=== PATIENT | female | born 1975 | race Caucasian/White ===

== ENCOUNTER 2019-01-14 11:43 | Outpatient (CLI) | payer BC | END 2019-01-14 13:30 | disposition home or self-care (01) | LOC: OBT 11:43 → L-D 11:45 → OBT 13:30 | DX: O09.523 Supervision of elderly multigravida, third trimester (principal); O24.414 Gestational diabetes mellitus in pregnancy, insulin controlled; Z3A.35 35 weeks gestation of pregnancy | CPT/HCPCS: 76815; 76818 ==

== ENCOUNTER 2019-01-31 09:34 | Outpatient (CLI) | payer BC ==
[2019-01-31 10:40] LABS: ADD MAN DIFF? NO
[2019-01-31 10:41] LABS: BASOPHILS % 0.4 % (0.0-2.0); EOSINOPHILS # 0.1 10^3/ul (0.0-0.5); EOSINOPHILS % 1.7 % (0.0-7.0); HEMATOCRIT 32.8 % (37.0-47.0); HEMOGLOBIN 11.2 g/dl (12.0-16.0); LYMPHOCYTES # 1.1 10^3/ul (0.8-2.9); LYMPHOCYTES % 14.1 % (15.0-51.0); MEAN CORPUSCULAR HGB CONC 34.1 g/dl (32.0-37.0); MEAN CORPUSCULAR VOLUME 87.9 fl (82.0-101.0); MEAN PLATELET VOLUME 11.8 fl (7.4-10.4); MONOCYTE # 0.6 10^3/ul (0.3-0.9); MONOCYTES % 8.2 % (0.0-11.0); NEUTROPHIL # 5.7 10^3/ul (1.6-7.5); NEUTROPHILS % 74.8 % (39.0-77.0); PLATELET COUNT 144 10^3/UL (140-415); RED BLOOD COUNT 3.73 10^6/ul (4.20-5.40); RED CELL DISTRIBUTION WIDTH 13.2 % (11.5-14.5)
[2019-01-31 10:41] LABS: WHITE BLOOD COUNT 7.7 10^3/ul (4.8-10.8)
[2019-01-31 10:48] LABS: ADD UMIC NO; UR ASCORBIC ACID 20 mg/dL (NEGATIVE); UR BILIRUBIN (Dip) NEGATIVE (NEGATIVE); UR BLOOD (Dip) NEGATIVE (NEGATIVE); UR CLARITY CLEAR (CLEAR); UR COLOR YELLOW (YELLOW); UR GLUCOSE (Dip) 3+ mg/dL (NEGATIVE); UR KETONES (Dip) NEGATIVE (NEGATIVE); UR LEUKOCYTE ESTERASE (Dip) NEGATIVE Leu/ul (NEGATIVE); UR NITRITE (Dip) NEGATIVE (NEGATIVE); UR SPECIFIC GRAVITY (Dip) 1.025 (1.003-1.030); UR TOTAL PROTEIN (Dip) NEGATIVE (NEGATIVE); UR UROBILINOGEN (Dip) NEGATIVE (NEGATIVE)
[2019-01-31 10:59] LABS: ALANINE AMINOTRANSFERASE 33 IU/L (13-69); ALKALINE PHOSPHATASE 140 IU/L (42-121); ANION GAP 6 (5-13); ASPARTATE AMINO TRANSFERASE 24 IU/L (15-46); BILIRUBIN,INDIRECT 0.2 mg/dl (0-1.1); BILIRUBIN,TOTAL 0.2 mg/dl (0.2-1.3); BLOOD UREA NITROGEN 12 mg/dl (7-20); CALCIUM 8.9 mg/dl (8.4-10.2); CARBON DIOXIDE 21 mmol/L (21-31); CHLORIDE 107 mmol/L (97-110); CREATININE 0.43 mg/dl (0.44-1.00); Estimated GFR > 60 mL/min (>60); GLUCOSE 107 mg/dl (70-220); POTASSIUM 4.1 mmol/L (3.5-5.1); SODIUM 134 mmol/L (135-144); URIC ACID 3.6 mg/dl (3.1-7.9)
[2019-01-31 11:01] LABS: INR 0.89; PROTIME 12.2 Sec (11.9-14.9)
[2019-01-31 11:02] LABS: PARTIAL THROMBOPLASTIN TIME 27.2 Sec (23.0-35.0)
== END 2019-01-31 11:48 | disposition home or self-care (01) ==
LOC: OBT 09:34 → L-D 09:35 → OBT 11:48
DX: O13.3 Gestational [pregnancy-induced] hypertension without significant proteinuria, third trimester (principal); O09.523 Supervision of elderly multigravida, third trimester; Z3A.37 37 weeks gestation of pregnancy
CPT/HCPCS: 76818; 80053; 81003; 84560; 85025; 85384; 85610; 85730

== ENCOUNTER → 2019-02-01 | Outpatient (CLI) | payer BC ==
[2019-02-01 14:13] LABS: COLLECTION PERIOD 24 hrs
[2019-02-01 14:22] LABS: VOLUME 2800 mls
[2019-02-01 14:23] LABS: COLLECTION PERIOD 24 hrs; VOLUME 2800 ml/24hrs
[2019-02-01 14:38] LABS: CREATININE,URINE RANDOM 32.24 mg/dl (20-320)
[2019-02-01 23:11] LABS: CREATININE CLEARANCE 145.8 mls/min (84.0-162.0); SCRET 0.43 mg/dl (0.44-1.00)
[2019-02-02 13:15] LABS: CREATININE 0.49 mg/dl (0.44-1.00)
== END | disposition home or self-care (01) ==
LOC: OBT 13:56
DX: O13.3 Gestational [pregnancy-induced] hypertension without significant proteinuria, third trimester (principal); O24.419 Gestational diabetes mellitus in pregnancy, unspecified control; O34.219 Maternal care for unspecified type scar from previous cesarean delivery; O09.523 Supervision of elderly multigravida, third trimester; Z3A.37 37 weeks gestation of pregnancy; Z3A.01 Less than 8 weeks gestation of pregnancy; Z88.2 Allergy status to sulfonamides
CPT/HCPCS: 82565; 82575; 84156

== ENCOUNTER 2019-02-07 07:07 | Inpatient (IN) | payer BC ==
[2019-02-07] MEDS ORDERED: CEFAZOLIN 2 GM/50 ML (PMX) 50 ML IVPB (08:00)
[2019-02-07] MEDS ORDERED: OXYTOCIN 30 UNITS/LR 500 ML IV ×3 (08:00→09:22)
[2019-02-07] MEDS ORDERED: METHYLERGONOVINE 0.2 MG INJ IM ×2 (08:00→10:00)
[2019-02-07] MEDS ORDERED: CARBOPROST 250 MCG INJ IM ×2 (08:00→10:00)
[2019-02-07] MEDS ORDERED: MISOPROSTOL 200 MCG TAB PR ×2 (08:00→10:00)
[2019-02-07] MEDS: LACTATED RINGER'S 1,000 ML IV (08:02)
[2019-02-07 08:03] LABS: ADD MAN DIFF? NO
[2019-02-07 08:05] LABS: BASOPHILS % 0.5 % (0.0-2.0); EOSINOPHILS # 0.1 10^3/ul (0.0-0.5); EOSINOPHILS % 1.2 % (0.0-7.0); HEMATOCRIT 36.5 % (37.0-47.0); HEMOGLOBIN 12.2 g/dl (12.0-16.0); LYMPHOCYTES # 1.2 10^3/ul (0.8-2.9); LYMPHOCYTES % 14.1 % (15.0-51.0); MEAN CORPUSCULAR HEMOGLOBIN 29.5 pg (29.0-33.0); MEAN CORPUSCULAR HGB CONC 33.4 g/dl (32.0-37.0); MEAN CORPUSCULAR VOLUME 88.4 fl (82.0-101.0); MEAN PLATELET VOLUME 11.6 fl (7.4-10.4); MONOCYTE # 0.7 10^3/ul (0.3-0.9); MONOCYTES % 7.7 % (0.0-11.0); NEUTROPHIL # 6.4 10^3/ul (1.6-7.5); NEUTROPHILS % 75.7 % (39.0-77.0); PLATELET COUNT 206 10^3/UL (140-415); RED BLOOD COUNT 4.13 10^6/ul (4.20-5.40); RED CELL DISTRIBUTION WIDTH 13.4 % (11.5-14.5)
[2019-02-07 08:05] LABS: WHITE BLOOD COUNT 8.4 10^3/ul (4.8-10.8)
[2019-02-07 08:16] LABS: ADD UMIC YES; UR ASCORBIC ACID 40 mg/dL (NEGATIVE); UR BACTERIA FEW /HPF (NONE SEEN); UR BILIRUBIN (Dip) NEGATIVE (NEGATIVE); UR BLOOD (Dip) NEGATIVE (NEGATIVE); UR CLARITY SLIGHTLY CLOUDY (CLEAR); UR COLOR YELLOW (YELLOW); UR GLUCOSE (Dip) NEGATIVE (NEGATIVE); UR KETONES (Dip) 2+ mg/dL (NEGATIVE); UR LEUKOCYTE ESTERASE (Dip) NEGATIVE Leu/ul (NEGATIVE); UR MUCUS FEW /HPF (NONE SEEN); UR NITRITE (Dip) NEGATIVE (NEGATIVE); UR RBC 0 /HPF (0-5); UR SPECIFIC GRAVITY (Dip) 1.024 (1.003-1.030); UR SQUAMOUS EPITHELIAL CELL FEW /HPF (FEW); UR TOTAL PROTEIN (Dip) 1+ mg/dl (NEGATIVE); UR UROBILINOGEN (Dip) NEGATIVE (NEGATIVE); UR WBC 4 /HPF (0-5)
[2019-02-07 08:25] LABS: INR 0.88; PT RATIO 0.9
[2019-02-07 08:26] LABS: ALANINE AMINOTRANSFERASE 40 IU/L (13-69); ALBUMIN 3.5 g/dl (3.3-4.9); ALBUMIN/GLOBULIN RATIO 1.16; ALKALINE PHOSPHATASE 178 IU/L (42-121); ANION GAP 12 (5-13); ASPARTATE AMINO TRANSFERASE 47 IU/L (15-46); BILIRUBIN,INDIRECT 0.5 mg/dl (0-1.1); BILIRUBIN,TOTAL 0.5 mg/dl (0.2-1.3); BLOOD UREA NITROGEN 14 mg/dl (7-20); CARBON DIOXIDE 21 mmol/L (21-31); CHLORIDE 106 mmol/L (97-110); CREATININE 0.53 mg/dl (0.44-1.00); Estimated GFR > 60 mL/min (>60); GLUCOSE 74 mg/dl (70-220); PARTIAL THROMBOPLASTIN TIME 28.3 Sec (23.0-35.0); POTASSIUM 4.3 mmol/L (3.5-5.1); SODIUM 139 mmol/L (135-144); TOTAL PROTEIN 6.5 g/dl (6.1-8.1)
[2019-02-07 08:57] LABS: HEPATITIS B SURFACE ANTIGEN NEGATIVE (NEGATIVE)
[2019-02-07] MEDS ORDERED: LEVALBUTEROL (NEB) 1.25 MG/0.5 ML AMP HHN (09:00)
[2019-02-07] MEDS ORDERED: ZOLPIDEM 5 MG TAB PO (09:00)
[2019-02-07] MEDS ORDERED: NALOXONE (0.4 MG/ML) INJ IV (09:00)
[2019-02-07] MEDS ORDERED: FENTAnyl 50 MCG/ML VIAL IV ×2 (09:00)
[2019-02-07] MEDS ORDERED: LABETALOL HCL 20MG INJ IV (09:00)
[2019-02-07] MEDS ORDERED: HYDROmorphONE 0.5 MG/0.5 ML SYG IV ×2 (09:00)
[2019-02-07] MEDS ORDERED: hydrALAzine 20 MG INJ IV (09:00)
[2019-02-07] MEDS ORDERED: DIPHENHYDRAMINE 50 MG INJ IV (09:00)
[2019-02-07] MEDS ORDERED: HYDROmorphONE 1 MG/5 ML IV SYRINGE IV ×3 (09:00)
[2019-02-07] MEDS ORDERED: KETOROLAC 30 MG INJ IV ×2 (09:00)
[2019-02-07] MEDS: FAMOTIDINE 20 MG INJ IV (09:04)
[2019-02-07] MEDS: ONDANSETRON 4 MG INJ IV ×3 (09:04→17:33)
[2019-02-07] MEDS: METOCLOPRAMIDE 10 MG INJ IV (09:04)
[2019-02-07] MEDS ORDERED: OXYTOCIN 10 UNIT INJ (09:22)
[2019-02-07] MEDS ORDERED: morphine SULFATE/PF (10 MG/10 ML) INJ (09:22)
[2019-02-07] MEDS ORDERED: EPINEPHrine 1 MG INJ (09:22)
[2019-02-07] MEDS ORDERED: HYDROCODONE/APAP (5/325) TAB PO (10:00)
[2019-02-07] MEDS ORDERED: METHYLERGONOVINE 0.2 MG TAB PO (10:00)
[2019-02-07] MEDS: OXYTOCIN 30 UNITS/LR 500 ML IV ×2 (11:49→16:26)
[2019-02-07] MEDS ORDERED: DEXTROSE 50% 50 ML SYRINGE IV ×2 (12:00)
[2019-02-07] MEDS ORDERED: GLUCAGON 1 MG INJ IM (12:00)
[2019-02-07] MEDS ORDERED: GLUCOSE GEL 15 GRAM TUBE PO ×2 (12:00)
[2019-02-07] MEDS ORDERED: GLUCOSE GEL 15 GRAM TUBE BUCCAL (12:00)
[2019-02-07] MEDS: INSULIN ASPART [NOVOLOG] 3 ML PEN SC ×3 (13:30→21:00)
[2019-02-07] MEDS: ACCU-CHEK XX ×2 (13:30→20:05)
[2019-02-07] MEDS: IBUPROFEN 800 MG TAB PO ×2 (14:00→22:00)
[2019-02-07] MEDS: LANOLIN HPA 1 PKT TOP (16:27)
[2019-02-07] MEDS: DIPHENHYDRAMINE 50 MG INJ IV ×2 (16:30→23:11)
[2019-02-07] MEDS: CEFAZOLIN 2 GM/50 ML (PMX) 50 ML IVPB (17:28)
[2019-02-07] MEDS: SENNA/DOCUSATE NA (8.6MG/50MG) TAB PO (21:00)
[2019-02-07] MEDS: LABETALOL 100 MG TAB PO (21:00)
[2019-02-07 22:15] LABS: RAPID PLASMA REAGIN NONREACTIVE (NR)
[2019-02-08] MEDS: INSULIN ASPART [NOVOLOG] 3 ML PEN SC ×6 (01:00→21:00)
[2019-02-08] MEDS: CEFAZOLIN 2 GM/50 ML (PMX) 50 ML IVPB ×2 (02:37→10:29)
[2019-02-08] MEDS: LACTATED RINGER'S 1,000 ML IV (03:22)
[2019-02-08] MEDS: IBUPROFEN 800 MG TAB PO ×3 (06:00→21:48)
[2019-02-08] MEDS: DIPHENHYDRAMINE 50 MG INJ IV (06:13)
[2019-02-08 06:39] LABS: ADD MAN DIFF? NO
[2019-02-08 06:58] LABS: WHITE BLOOD COUNT 15.1 10^3/ul (4.8-10.8)
[2019-02-08 06:58] LABS: BASOPHILS % 0.3 % (0.0-2.0); EOSINOPHILS % 0.1 % (0.0-7.0); HEMATOCRIT 34.9 % (37.0-47.0); HEMOGLOBIN 11.6 g/dl (12.0-16.0); LYMPHOCYTES # 0.8 10^3/ul (0.8-2.9); LYMPHOCYTES % 5.4 % (15.0-51.0); MEAN CORPUSCULAR HEMOGLOBIN 29.6 pg (29.0-33.0); MEAN CORPUSCULAR HGB CONC 33.2 g/dl (32.0-37.0); MEAN PLATELET VOLUME 11.4 fl (7.4-10.4); MONOCYTES % 6.7 % (0.0-11.0); NEUTROPHIL # 13.1 10^3/ul (1.6-7.5); PLATELET COUNT 188 10^3/UL (140-415); RED BLOOD COUNT 3.92 10^6/ul (4.20-5.40); RED CELL DISTRIBUTION WIDTH 13.8 % (11.5-14.5)
[2019-02-08 07:02] LABS: ALANINE AMINOTRANSFERASE 37 IU/L (13-69); ALBUMIN 2.7 g/dl (3.3-4.9); ALBUMIN/GLOBULIN RATIO 1.03; ALKALINE PHOSPHATASE 126 IU/L (42-121); ANION GAP 7 (5-13); ASPARTATE AMINO TRANSFERASE 42 IU/L (15-46); BILIRUBIN,INDIRECT 0.3 mg/dl (0-1.1); BILIRUBIN,TOTAL 0.3 mg/dl (0.2-1.3); BLOOD UREA NITROGEN 13 mg/dl (7-20); CALCIUM 8.3 mg/dl (8.4-10.2); CARBON DIOXIDE 24 mmol/L (21-31); CHLORIDE 105 mmol/L (97-110); CREATININE 0.57 mg/dl (0.44-1.00); Estimated GFR > 60 mL/min (>60); GLUCOSE 80 mg/dl (70-220); POTASSIUM 4.2 mmol/L (3.5-5.1); SODIUM 136 mmol/L (135-144); TOTAL PROTEIN 5.3 g/dl (6.1-8.1)
[2019-02-08 07:14] LABS: INR 0.98; PROTIME 13.1 Sec (11.9-14.9)
[2019-02-08 07:15] LABS: PARTIAL THROMBOPLASTIN TIME 29.2 Sec (23.0-35.0)
[2019-02-08 07:42] LABS: FIBRIN SPLIT PRODUCT >10 and <40 ug/ml (<10)
[2019-02-08] MEDS: LABETALOL 100 MG TAB PO ×2 (08:29→21:00)
[2019-02-08] MEDS: HYDROCODONE/APAP (5/325) TAB PO ×3 (08:30→20:57)
[2019-02-08] MEDS: SENNA/DOCUSATE NA (8.6MG/50MG) TAB PO ×2 (08:30→20:56)
[2019-02-08] MEDS: BISACODYL (EC) 5 MG TAB PO (12:00)
[2019-02-08] MEDS: INFLUENZA VIRUS VACCINE 0.5 ML (DISPENSING) IM* (14:05)
[2019-02-09] MEDS: INSULIN ASPART [NOVOLOG] 3 ML PEN SC ×6 (01:00→21:00)
[2019-02-09] MEDS: OXYCODONE/ACETAMINOPHEN (5/325) TAB PO ×3 (01:50→20:38)
[2019-02-09] MEDS: IBUPROFEN 800 MG TAB PO ×3 (05:34→21:35)
[2019-02-09] MEDS: SENNA/DOCUSATE NA (8.6MG/50MG) TAB PO ×2 (08:38→20:38)
[2019-02-09] MEDS: LABETALOL 100 MG TAB PO ×2 (08:43→20:38)
[2019-02-09] MEDS: BISACODYL (EC) 5 MG TAB PO (11:38)
[2019-02-09 12:51] LABS: RHOGAM PROFILE 1 1
[2019-02-09] MEDS: NA PHOSPHATE/BIPHOS 133 ML ENEMA PR (20:00)
[2019-02-10] MEDS: INSULIN ASPART [NOVOLOG] 3 ML PEN SC ×3 (01:00→09:00)
[2019-02-10] MEDS: OXYCODONE/ACETAMINOPHEN (5/325) TAB PO ×2 (03:55→08:54)
[2019-02-10] MEDS: IBUPROFEN 800 MG TAB PO (05:47)
[2019-02-10 08:24] LABS: ADD MAN DIFF? NO
[2019-02-10 08:31] LABS: WHITE BLOOD COUNT 10.5 10^3/ul (4.8-10.8)
[2019-02-10 08:31] LABS: BASOPHILS % 0.2 % (0.0-2.0); EOSINOPHILS # 0.1 10^3/ul (0.0-0.5); EOSINOPHILS % 1.2 % (0.0-7.0); HEMATOCRIT 31.2 % (37.0-47.0); HEMOGLOBIN 10.4 g/dl (12.0-16.0); LYMPHOCYTES # 0.9 10^3/ul (0.8-2.9); MEAN CORPUSCULAR HEMOGLOBIN 29.8 pg (29.0-33.0); MEAN CORPUSCULAR HGB CONC 33.3 g/dl (32.0-37.0); MEAN CORPUSCULAR VOLUME 89.4 fl (82.0-101.0); MEAN PLATELET VOLUME 10.8 fl (7.4-10.4); MONOCYTE # 0.7 10^3/ul (0.3-0.9); MONOCYTES % 6.4 % (0.0-11.0); NEUTROPHIL # 8.7 10^3/ul (1.6-7.5); NEUTROPHILS % 82.8 % (39.0-77.0); PLATELET COUNT 254 10^3/UL (140-415); RED BLOOD COUNT 3.49 10^6/ul (4.20-5.40); RED CELL DISTRIBUTION WIDTH 13.9 % (11.5-14.5)
[2019-02-10] MEDS: SENNA/DOCUSATE NA (8.6MG/50MG) TAB PO (08:47)
[2019-02-10] MEDS: LABETALOL 100 MG TAB PO (09:00)
[2019-02-10] MEDS ORDERED: DIPHTH/TET/ACEL PERTUSS (ADULT) 0.5 ML VIAL IM* (09:00)
[2019-02-10] MEDS ORDERED: MEASLES,MUMPS,RUBELLA VACCINE INJ SC* (09:00)
== END 2019-02-10 16:03 | disposition home or self-care (01) | DRG 783 ==
LOC: L-D 07:07 → PP1 14:54
PROVIDERS: Obstetrics & Gynecology
PROC: 10D00Z1 Extraction of Products of Conception, Low, Open Approach (ICD-10-PCS; principal; 2019-02-07 09:00)
PROC: 0UB70ZZ Excision of Bilateral Fallopian Tubes, Open Approach (ICD-10-PCS; 2019-02-07 09:00)
DX: O65.5 Obstructed labor due to abnormality of maternal pelvic organs (principal); O24.12 Pre-existing type 2 diabetes mellitus, in childbirth; O34.211 Maternal care for low transverse scar from previous cesarean delivery; E11.9 Type 2 diabetes mellitus without complications; O36.63X0 Maternal care for excessive fetal growth, third trimester, not applicable or unspecified; O14.94 Unspecified pre-eclampsia, complicating childbirth; Z3A.38 38 weeks gestation of pregnancy; Z37.0 Single live birth; Z79.4 Long term (current) use of insulin; Z30.2 Encounter for sterilization
CPT/HCPCS: 80053; 81001; 82962; 84560; 85025; 85362; 85384; 85610; 85730; 86592; 86850; 86870; 86885; 86900; 86901; 87340; 88302; 90686